=== PATIENT | male | born 1925 | race Caucasian/White ===

== ENCOUNTER 2017-02-12 03:33 | Emergency (ER) | payer MEDICARE, MEDICAID ==
[2017-02-12 03:55] VITALS: RESP 20
[2017-02-12] MEDS: Albuterol-Ipratrop 3 mg / 0.5 (3 ml) UD IH SCH ×2 (05:00→05:10)
[2017-02-12] MEDS ORDERED: Albuterol-Ipratrop 3 mg / 0.5 (3 ml) UD ONE (05:02)
[2017-02-12 05:43] VITALS: O2SAT 96
--- NOTE | 2017-02-12 05:58 | C.PDOC ---
History Of Present Illness 89 y/o male, whose PMHx includes COPD, presents to the ED for evaluation of nonproductive cough, runny nose and mild shortness of breath which developed over the past 3-4 days. Patient denies fever, chills, rash, trauma, recent trauma. Time Seen by Provider: 02/12/17 04:27 Chief Complaint (Nursing): Shortness Of Breath History Per: Patient History/Exam Limitations: no limitations Onset/Duration Of Symptoms: Days (3-4) Current Symptoms Are (Timing): Still Present Current Respiratory Medications: See Home Med List Associated Symptoms: denies: Fever Additional History Per: Patient Past Medical History Reviewed: Historical Data, Nursing Documentation, Vital Signs Vital Signs: Last Vital Signs Temp 98.4 F 02/12/17 06:19 Pulse 98 H 02/12/17 06:19 Resp 20 02/12/17 06:19 BP 140/75 02/12/17 06:19 Pulse Ox 96 02/12/17 06:32 - Medical History PMH: Arthritis, Emphysema Denies: Chronic Kidney Disease Surgical History: No Surg Hx Family History: States: Unknown Family Hx - Social History Hx Alcohol Use: No Hx Substance Use: No - Immunization History Hx Tetanus Toxoid Vaccination: No Hx Influenza Vaccination: Yes Hx Pneumococcal Vaccination: Yes Review Of Systems Constitutional: Negative for: Fever ENT: Positive for: Nose Discharge Respiratory: Positive for: Cough, Shortness of Breath (mild). Negative for: Sputum Skin: Negative for: Rash Physical Exam - Physical Exam Appears: Non-toxic, No Acute Distress, Other (thin appearing elderly male ) Skin: Normal Color, Warm, Dry Head: Atraumatic, Normacephalic Eye(s): bilateral: Normal Inspection Ear(s): Bilateral: Normal Nose: Normal, No Discharge Oral Mucosa: Moist Throat: Normal, No Erythema, No Exudate Neck: Supple Chest: Symmetrical, No Deformity, No Tenderness Cardiovascular: Rhythm Regular, No Murmur Respiratory: Normal Breath Sounds, No Accessory Muscle Use, No Rales, No Rhonchi , No Wheezing, No Other (retractions ) Extremity: Normal ROM, Capillary Refill (less than 2 seconds ) Neurological/Psych: Oriented x3, Normal Speech, Normal Cognition Gait: Steady ED Course And Treatment ECG: Interpreted By Me ECG Rhythm: Sinus Rhythm ECG Interpretation: Normal Rate From EC O2 Sat by Pulse Oximetry: 96 (on RA) Pulse Ox Interpretation: Normal - Radiology CXR Interpretation: Yes: No Acute Disease (fibrotic changes) Medical Decision Making Medical Decision Making: CXR, EKG ordered and reviewed. Albuterol INH and Prednisone PO administered. On re-exam, the patient reports improvement of symptoms. Abdomen is soft, non- tender and tolerating PO well. Lungs are CTA, heart is RRR, Ambulatory in the ED with steady gait. Disposition - Disposition Referrals: Arturo Palmer MD [Staff Provider] - Disposition: HOME/ ROUTINE Disposition Time: 05:52 Condition: GOOD Additional Instructions: Follow up with the medical doctor within 1-2 days. Return if worsened. Prescriptions: Albuterol HFA [Ventolin HFA 90 mcg/actuation (8 g)] 1 puff IH Q6 #1 inhaler predniSONE [Prednisone] 20 mg PO BID #10 tab Instructions: Emphysema (ED) Forms: [employer] (Macedonian) Print Language: MOLDOVAN - Clinical Impression Clinical Impression: Emphysema - PA / PLAN CONSULTANT / Resident Statement MD/DO has reviewed & agrees with the documentation as recorded. - Scribe Statement The provider has reviewed the documentation as recorded by the Scribe (Yaz Schwartz) All medical record entries made by the Scribe were at my direction and personally dictated by me. I have reviewed the chart and agree that the record accurately reflects my personal performance of the history, physical exam, medical decision making, and the department course for this patient. I have also personally directed, reviewed, and agree with the discharge instructions and disposition.
[2017-02-12 06:21] VITALS: BP 140/75; PULSE 98; TEMP 98.4
--- NOTE | 2017-02-12 08:28 | RAD ---
Chest x-ray single frontal view History: Productive cough. Comparison: 03/30/2016 Findings: Biapical pleural thickening with upper lobe granulomatous changes. Dense confluent consolidative and fibrotic changes in the bilateral mid lung as well as the bilateral lung bases. Blunted right costophrenic angle. Calcification at the aortic knob. Prominent heart size. Degenerative changes in the spine and shoulders. Impression: Biapical pleural thickening with upper lobe granulomatous changes. Dense confluent consolidative and fibrotic changes in the bilateral mid lung as well as the bilateral lung bases. Blunted right costophrenic angle. Calcification at the aortic knob. Prominent heart size.
--- NOTE | 2017-02-15 09:41 | CARD ---
APPROVED REPORT EKG Measurement Heart [id number] <Conclusion> Normal sinus rhythm Possible Left atrial enlargement Left axis deviation Abnormal ECG
== END 2017-02-12 06:21 | disposition home or self-care (01) ==
LOC: C.ER 03:33
DX: J43.9 Emphysema, unspecified (principal)